=== PATIENT | female | born 1985 | race Caucasian/White ===

== ENCOUNTER 2019-03-15 03:23 | Inpatient (IN) | payer BC, MEDICAID ==
[2019-03-15] VITALS (12 sets, daily range): BP systolic 114–134; BP diastolic 65–77; PULSE 65–93; TEMP 97.6–98.2
[~2019-03-15] VITALS: Ht 167.6 cm; Wt 99.5 kg
[~2019-03-15 03:23] MED LIST: FERROUS SU325 MG/TAB PO; IBU800 M1 PO; MOTRIN 600600 MG/TAB PO; PERCOCET 325 MG1 TA2 PO; PRENATAL VITAMI1 TAB PO
--- NOTE | 2019-03-15 03:30 | NUR ---
0330 G3L2 38.6 WEEK PREG TO LR3. UP TO BR TO VOID. STATES CONTRACTIONS STARTED AT 0230. 0340 TO BED AND EFM ON. SVE /0. 0348 DR GONCALVES NOTIFIED TO COME FOR DELIVERY. READIED FOR DELIVERY
--- NOTE | 2019-03-15 03:55 | NUR ---
0355 SROM WITH LARGE AMOUNT LIGHT GREEN FLUID NOTED. 0357 VIABLE MALE DELIVERED PER RN. CORD CUT AND BABY TO MOMS CHEST. CORD BLOOD OBTAINED. 0405 DR GONCALVES HERE AT BEDSIDE. IV STARTED ON THIRD ATTEMPT IN LEFT WRIST 0409 PLACENTA DELIVERED AND IV PITOCIN STARTED. 0413 METHERGINE 0.2MG IM GIVEN. 2 DEGREE LAC BEING REPAIRED.
--- NOTE | 2019-03-15 04:25 | NUR ---
0425 FUNDAL CHECK WITH LARGE 8CM CLOT PASSED. NO EXCESS VAG BLEEDING. DR GONCALVES AWARE OF CLOT.
[2019-03-15] MEDS ORDERED: PROTONIX20 MG PO (04:33)
[2019-03-15] MEDS ORDERED: CONCEPT DHA1 CAP PO (04:34)
[2019-03-15] MEDS ORDERED: ZOLOFT 100MG100 MG PO (04:35)
--- NOTE | 2019-03-15 04:55 | NUR ---
0455 UP TO BR PER REQUEST TO VOID. UNABLE TO VOID. PERICARE DONE. NO CLOTS NOTED. RETURNED TO BED. MOTRIN 800MG PO GIVEN FOR CRAMPS.
[2019-03-15 04:59] LABS: BASO # 0.1 (0.0-0.2); BASO % 0.4 % (0.0-2.0); EOS # 0.1 (0.0-0.7); GRAN # 7.4 (1.4-6.5); GRAN % 65.9 % (42.2-75.2); LYMPH # 2.6 (1.2-3.4); LYMPH % 23.2 % (20.0-51.0); MEAN CELL VOLUME 73 fl (80.0-100.0); MEAN CORPUSCULAR HGB CONC 31 g/dl (33.0-37.0); MEAN PLATELET VOLUME 11.9 fl (7.4-10.4); MONO % 8.5 % (1.7-9.3); PLATELET COUNT 280 K/mm3 (130-400); REDCELL DISTRIBUTION WIDTH-CV 16.4 % (11.5-14.5)
[2019-03-15 05:08] LABS: HEMATOCRIT 32.3 % (37.0-47.0); HEMOGLOBIN 9.9 g/dl (12.5-16.0); MEAN CORPUSCULAR HEMOGLOBIN 23 pg (27.0-31.0)
--- NOTE | 2019-03-15 05:40 | NUR ---
0540 IV CONTS TO INFUSE. AMB TO 208 AND SHASHANK WELL. TO BR AND VOIDED 200CC. PERCICARE DONE AND PAD CHANGED. SM TO MOD VAG BLEEDING NOTED. TO BED AND ORIENTED TO ROOM.
[2019-03-16 00:20] VITALS: BP 123/62; PULSE 99; TEMP 98.4
[2019-03-16 03:35] VITALS: BP 106/57; PULSE 87; TEMP 98.3
[2019-03-16 07:23] VITALS: BP 116/70; PULSE 82; TEMP 97.9
[2019-03-16 16:23] VITALS: BP 131/59; PULSE 96; TEMP 98.2
[2019-03-16 20:00] VITALS: BP 113/64; PULSE 100; TEMP 98.9
[2019-03-17 07:50] VITALS: BP 135/85; PULSE 96; TEMP 97.5
[2019-03-17] MEDS ORDERED: MOTRIN 800800 MG/TAB PO (08:44)
[2019-03-17] MEDS ORDERED: PERCOCET 325 MG1 TA2 PO (08:44)
--- NOTE | 2019-03-17 09:10 | NUR ---
Initial visit; Mom thanked for offering congratulations for the of her son. thanked mom for choosing [facility].
== END 2019-03-17 14:30 | disposition home or self-care (01) | DRG 807 ==
LOC: LDRO 03:23 → OB 03:47 → LDR 03:47 → OB 05:50
PROVIDERS: Obstetrics & Gynecology; ADMIT Student in an Organized Health Care Education/Training Program
PROC: 10E0XZZ Delivery of Products of Conception, External Approach (ICD-10-PCS; principal; 2019-03-15)
PROC: 0KQM0ZZ Repair Perineum Muscle, Open Approach (ICD-10-PCS; 2019-03-15)
DX: O70.1 Second degree perineal laceration during delivery (principal); Z37.0 Single live birth; Z3A.38 38 weeks gestation of pregnancy; O99.214 Obesity complicating childbirth; O99.344 Other mental disorders complicating childbirth; F32.9 Major depressive disorder, single episode, unspecified; O26.893 Other specified pregnancy related conditions, third trimester; Z67.41 Type O blood, Rh negative
CPT/HCPCS: J2210; J2590; J2791; J7120

== ENCOUNTER 2020-12-03 18:54 | Inpatient (IN) | payer MEDICAID ==
[~2020-12-03] VITALS: Ht 165.1 cm; Wt 95.9 kg
[2020-12-03] VITALS (15 sets, daily range): BP systolic 79–126; BP diastolic 35–62; PULSE 83–104; TEMP 97.3
[~2020-12-03 18:54] MED LIST changes: +CONCEPT DHA1 CAP PO; +MOTRIN 800800 MG/TAB PO; +PROTONIX20 MG PO; +ZOLOFT 100MG100 MG PO
[2020-12-03 19:13] LABS: BASO % 0.3 % (0.0-2.0); EOS # 0.1 (0.0-0.7); EOS % 1.2 % (0-4.0); GRAN # 7.9 (1.4-6.5); GRAN % 79.5 % (42.2-75.2); HEMATOCRIT 34.2 % (37.0-47.0); HEMOGLOBIN 11.4 g/dl (12.5-16.0); LYMPH # 1.3 (1.2-3.4); MEAN CELL VOLUME 83 fl (80.0-100.0); MEAN CORPUSCULAR HEMOGLOBIN 28 pg (27.0-31.0); MEAN CORPUSCULAR HGB CONC 33 g/dl (33.0-37.0); MEAN PLATELET VOLUME 10.6 fl (7.4-10.4); MONO # 0.6 (0.1-0.6); MONO % 5.5 % (1.7-9.3); PLATELET COUNT 281 K/mm3 (130-400); REDCELL DISTRIBUTION WIDTH-CV 14.4 % (11.5-14.5)
[2020-12-03] MEDS ORDERED: FERROUS SU325 MG/TAB PO (19:15)
[2020-12-03 19:28] LABS: BILIRUBIN,TOTAL 0.3 mg/dL (0.0-1.0); C-REACTIVE PROTEIN 1.7 mg/dL (0.0-0.9); CALCIUM 8.9 mg/dL (8.4-10.2); CREATININE, serum 0.61 (0.52-1.25); POTASSIUM 3.7 mmol/L (3.4-5.0); TOTAL PROTEIN 7.1 gm/dL (6.4-8.2)
--- NOTE | 2020-12-03 20:15 | NUR ---
Patient to room 221 from main OR via bed. She is sleepy, but arouses to name and answers questions appropriately. Recovery vital signs started and WNL. Patient denies pain. INT noted to right forearm, IV noted to left AC with LR infusing. Peripad in place. SCDs on bilateral lower extremities. Assessment completed. Plan of care reviewed with patient. Call light within reach.
--- NOTE | 2020-12-03 21:15 | NUR ---
Patient tolerates water and crackers well. [place] box offered.
--- NOTE | 2020-12-03 23:15 | NUR ---
2304 Patient calls out and states that she is feeling light headed and her head is "fuzzy". Patient is pale and diaphoretic. Vital signs obtained: BP: 74/35, HR: 91, O2 sat: 100%. Head of bed lowered. Peripad checked and bleeding WNL with bleeding noted on about 50% of the white peripad. No active bleeding noted. BP rechecked and 81/39. Patient with eyes closed and minimal responsiveness. Dr. Connor called and updated on patient's status. Orders for an IV bolus and stat H&H obtained. 2309 BP: 86/39. Patient more responsive and answers to name. IVF bolus started. 2314 BP: 98/45. Patient alert, states that her head still feels "fuzzy" but that she is starting to feel better. Lab at bedside. This nurse remains at bedside.
[2020-12-03 23:35] LABS: HEMATOCRIT 27.6 % (37.0-47.0)
--- NOTE | 2020-12-03 23:45 | NUR ---
Dr. Connor called and hgb of 9.0 reported. Blood pressure remains 80-90s over mid 30-40s. Heart rate mid 80s to mid 90s. Patient is alert, she states that she still feels "light headed and fuzzy". Orders to transfuse 1 unit of PRBC now and continue with H&H in the AM.
[2020-12-04] VITALS (18 sets, daily range): BP systolic 97–115; BP diastolic 39–60; PULSE 82–100; TEMP 97.5–98.5
--- NOTE | 2020-12-04 00:05 | NUR ---
Patient assisted to bedpan, voids 400cc without difficulty. Bleeding remains WNL.
--- NOTE | 2020-12-04 00:30 | NUR ---
Blood bank called and asked how much longer it would be for PRBC, tech states that it will be 10 more minutes.
--- NOTE | 2020-12-04 01:00 | NUR ---
Blood issued and picked up, blood product number would not scan, lab contacted and blood returned. Waiting on new unit of PRBCs to be issued.
--- NOTE | 2020-12-04 01:35 | NUR ---
PRBC infusing per orders and protocol.
--- NOTE | 2020-12-04 04:00 | NUR ---
Patient assisted to bedside commode, no c/o feeling dizzy or light headed. Voids 500cc without difficulty, pericare provided, and patient assisted back to bed.
[2020-12-04 07:21] LABS: HEMOGLOBIN 8.8 g/dl (12.5-16.0)
[2020-12-04] MEDS ORDERED: IBU600 MG PO (08:42)
--- NOTE | 2020-12-04 09:45 | NUR ---
Patient tolerates eating breakfast and ambulating in hallway well. Vaginal bleeding scant. Patient desires to go home. 1015- Patient given discharge instructions and denies questions. Escorted off unit via wheelchair by this RN.
== END 2020-12-04 10:15 | disposition home or self-care (01) | DRG 779 ==
LOC: COL.ER 18:54 → OB 20:10
PROVIDERS: Nurse Practitioner; ADMIT Obstetrics & Gynecology
PROC: 10D07Z6 Extraction of Products of Conception, Vacuum, Via Natural or Artificial Opening (ICD-10-PCS; principal; 2020-12-03 19:45)
DX: O03.1 Delayed or excessive hemorrhage following incomplete spontaneous abortion (principal); O90.81 Anemia of the puerperium; I95.9 Hypotension, unspecified
CPT/HCPCS: J2704; J3010; J7030; J7120; P9016